=== PATIENT | female | born 2000 | race Caucasian/White ===

== ENCOUNTER 2024-03-17 08:23 | Outpatient (AMB) | payer OTHER, SELFPAY ==
--- NOTE | 2024-03-17 08:25 | MHC.OFFWIV ---
Intake Vital Signs 03/17/24 08:26 Height 5 ft 4 in Weight 171 lb 2 oz BMI 29.4 BP 116/64 Blood Pressure Location Lt brachial Position Sitting Pulse 102 H Pulse Source Pulse Oximeter Temp 97.6 F Temp Source Temporal Artery Scan Pulse Oximetry (%) 99 Oxygen Delivery Method Room Air Intake Visit Reasons: [employer] congested , sore throat , ear infection Intake Note: Pt presents to the office today for congestion,sore throat, and ear pain. She states this all started Wednesday. Patient Tobacco Use Status: Never used Tobacco Allergies No Known Allergies Allergy (Verified 03/17/24 08:29) HPI HPI Comments History of Present Illness Details 24 y/o female patient presents to [facility] in clinic with c/o URI symptoms since Wednesday. Pt's partner with similar symptoms at home - she came back from a cruise. pt also c/o right ear severe pain. Pt is 19 weeks . PFSH Social History Patient Tobacco Use Status: Never used Tobacco Review of Systems Const All systems reviewed & are unremarkable except as noted in HPI and below Physical Exam Vital Signs: Last Vital Signs Temp 97.6 F 03/17/24 08:26 Pulse 102 H 03/17/24 08:26 BP 116/64 03/17/24 08:26 Pulse Ox 99 03/17/24 08:26 Oxygen Delivery Method Room Air 03/17/24 08:26 BMI result Body Mass Index 29.4 Const General: comfortable and no acute distress Orientation/consciousness: patient oriented x3 HEENT Head: Yes normocephalic Ears: external ears normal and TM abnormal bulging on the left, erythematous on the left, with fluid behind the TM bilateral and retracted on the left; not perforated and not scarred General nose exam: Abnormal mucous membranes and turbinates present boggy and erythematous and Nasal discharge present Face and sinus: Yes sinuses nontender Mouth: moist mucous membranes Throat: Yes posterior oropharynx normal Resp Effort & Inspection: normal respiratory effort and able to speak in complete sentences Auscultation: clear to auscultation bilaterally, no crackles, no rales, no rhonchi and no wheezes Cardio Rate: regular rate Rhythm: regular rhythm Neuro General: patient oriented x3, gait normal and moves all extremities Psych Speech and movement: Normal speech and movement present Results AMB Rapid Strep AMB Rapid Strep Negative Last Edit by Abigail Conrad CMA on 03/17/24 08:41 Results Reviewed Results Reviewed: Laboratory Last Values Strep Scn Rapid Clinic Negative 03/17/24 08:40 Assessment & Plan Assessment & Plan (1) Acute pharyngitis: Code(s): J02.9 - Acute pharyngitis, unspecified Qualifiers: Pharyngitis/tonsillitis etiology: unspecified etiology Qualified Code(s): J02.9 - Acute pharyngitis, unspecified Plan: - Home remedies - Acetaminophen for pain relief (2) Otitis media: Code(s): H66.90 - Otitis media, unspecified, unspecified ear Qualifiers: Chronicity: acute Laterality: left Otitis media type: suppurative Recurrence: non-recurrent Spontaneous tympanic membrane rupture: without spontaneous rupture Qualified Code(s): H66.002 - Acute suppurative otitis media without spontaneous rupture of ear drum, left ear Plan: - Take medications as directed - Acetaminophen for pain relief. Orders: Orders AMB Rapid Strep Screen Today Z13.9 - Encounter for screening, unspecified Medications: New amoxicillin-pot clavulanate 875-125 mg 1 tab PO BID 20 tabs 0RF 10 days H66.002 - Acute suppurative otitis media without spontaneous rupture of ear drum, left ear oxymetazoline 0.05% (Afrin (oxymetazoline)) 2 sprays intranasal Q12H PRN 15 mL 0RF nasal congestion 3 days J02.9 - Acute pharyngitis, unspecified Coding Level of Care Code New Pt Level 3 (13075) Diagnoses Acute pharyngitis, unspecified etiology J02.9 Pharyngitis/tonsillitis etiology: unspecified etiology Non-recurrent acute suppurative otitis media of left ear without spontaneous rupture of tympanic membrane H66.002 Chronicity: acute Laterality: left Otitis media type: suppurative Recurrence: non-recurrent Spontaneous tympanic membrane rupture: without spontaneous rupture Time Spent (min) 15
[2024-03-17 08:26] VITALS: BP 116/64; PULSE 102; TEMP 36.4; O2SAT 99; BMI 29.4
== END 2024-03-17 09:03 | disposition home or self-care (01) ==
PROVIDERS: PCP Internal Medicine; Visit Provider Nurse Practitioner Family
DX: J02.9 Acute pharyngitis, unspecified (principal); H66.002 Acute suppurative otitis media without spontaneous rupture of ear drum, left ear
CPT/HCPCS: 87880; 99203

== ENCOUNTER 2024-07-21 08:06 | Outpatient (AMB) | payer OTHER, SELFPAY ==
[2024-07-21 08:10] VITALS: BP 104/68; PULSE 79; TEMP 36.8; O2SAT 98; BMI 33.6
--- NOTE | 2024-07-21 08:10 | AM.OFFWIN_ITS ---
Intake Vital Signs 07/21/24 08:10 Height 5 ft 4 in Weight 196 lb BMI 33.6 BP 104/68 Blood Pressure Location Lt brachial Position Sitting Pulse 79 Pulse Source Pulse Oximeter Temp 98.3 F Temp Source Oral Pulse Oximetry (%) 98 Oxygen Delivery Method Room Air Intake Visit Reasons: EP sore throat, stuffy nose (37 wks preg) Intake Note: pt c/o Sore throat, stuffy nose,Bilateral ear pain, Watery eyes. Started Wednesday. Pt 37 wks Patient Tobacco Use Status: Never used Tobacco Allergies No Known Allergies Allergy (Verified 07/21/24 08:22) Do you need a note to return to daycare/school/sports/work: No HPI EP sore throat, stuffy nose (37 wks preg) HPI Details This is a 24-year-old female patient who presents to the walk-in clinic today with a 4-5 day history of nasal congestion, fatigue, sore throat, left ear pressure/pain. She is 37 weeks currently. She has been using Vicks at home with some mild relief. Denies any fever or chills. Denies known exposure to sick contacts. [facility] Social History Patient Tobacco Use Status: Never used Tobacco Review of Systems Const All systems reviewed & are unremarkable except as noted in HPI and below Physical Exam Vital Signs: Last Vital Signs Temp 98.3 F 07/21/24 08:10 Pulse 79 07/21/24 08:10 BP 104/68 07/21/24 08:10 Pulse Ox 98 07/21/24 08:10 Oxygen Delivery Method Room Air 07/21/24 08:10 BMI result Body Mass Index 33.6 Const General: cooperative and no acute distress Limitations: no limitations HEENT Head: Yes normal to inspection Ears: hearing grossly normal bilaterally, external ears normal, TM normal on the right and TM abnormal (right TM erythematous, purulent effusion, fluid behind TM) General nose exam: Normal external nose present Face and sinus: Yes normal facial exam Mouth: Normal oral and palatal mucosa present Throat: Yes posterior oropharynx abnormal (Mild erythema) Neck Neck: Yes no lymphadenopathy Resp Effort & Inspection: normal respiratory effort Auscultation: clear to auscultation bilaterally Cardio Rate: regular rate Rhythm: regular rhythm Skin General skin exam: no rashes or lesions noted Extrem General: Yes capillary refill normal and Yes no clubbing, cyanosis or edema Psych Appearance: grossly normal Mental Status: mental status grossly normal Speech and movement: Normal speech and movement present Results AMB Rapid Strep AMB Rapid Strep Negative Last Edit by Arthur Jacinto CMA on 07/21/24 08:42 Assessment & Plan Assessment & Plan (1) Left otitis media with effusion: Code(s): H65.92 - Unspecified nonsuppurative otitis media, left ear Plan: Rapid strep in the office was negative, COVID/flu/RSV swab was obtained, and patient is aware she will be notified of results once these are available. Will start her on cefdinir b.i.d. for left OM. Patient has negative side effects from amox/Augmentin. Confirmed with pharmacist at [facility] inpatient that this medication is safe given patient's . Reviewed indications, use, possible side effects of medication. She has an appointment with her OB provider later this afternoon for a routine check. If she does not improve with treatment, or if symptoms worsen/new symptoms develop, she can return to the clinic for further evaluation. She verbalizes understanding and agrees to plan. Orders: Orders AMB Rapid Strep Screen Today Z13.9 - Encounter for screening, unspecified SARS-CoV2/FLU/RSV Today J06.9 - Acute upper respiratory infection, unspecified Medications: New cefdinir Take twice a day by mouth for 7 days 300 mg PO BID 7 days 14 caps 0RF H65.92 - Unspecified nonsuppurative otitis media, left ear Coding Level of Care Code Est Pt Level 4 (28772) Diagnoses Left otitis media with effusion H65.92
== END 2024-07-21 08:55 | disposition home or self-care (01) ==
PROVIDERS: PCP Internal Medicine; Visit Provider Nurse Practitioner Family
DX: H65.92 Unspecified nonsuppurative otitis media, left ear (principal); J02.9 Acute pharyngitis, unspecified
CPT/HCPCS: 87880; 99214

== ENCOUNTER 2024-07-21 08:41 | Outpatient (REF) | payer OTHER, SELFPAY ==
[2024-07-21 11:14] LABS: Influenza A PCR NEGATIVE (Negative); Influenza B PCR NEGATIVE (Negative); Resp Syncy Virus RNA Qual PCR NEGATIVE (Negative); SARS COV2 PCR INHOUSE NEGATIVE (Negative)
== END 2024-07-21 08:42 | disposition home or self-care (01) ==
LOC: HO.LAB 08:41
PROVIDERS: Visit Provider Nurse Practitioner Family
DX: J06.9 Acute upper respiratory infection, unspecified (principal)
CPT/HCPCS: 0241U